=== PATIENT | female | born 1965 | race Caucasian/White ===

== ENCOUNTER → 2020-10-02 16:46 | Outpatient (CLI) | payer BC, SELFPAY ==
--- NOTE | ~2020-10-02 | MM_ITS ---
EXAMINATION: MM screening coleman BI w mike HISTORY: Screening mammogram TECHNIQUE: Craniocaudal and mediolateral oblique 3-D tomosynthesis images were obtained and synthetic 2-D images were generated. CAD analysis was submitted and interpreted. COMPARISON: bilateral digital screening mammogram 10/02/2014 diagnostic left digital mammogram and limited left breast ultrasound 09/21/2014, 03/20/2013 bilateral digital screening mammogram examinations BREAST PARENCHYMAL COMPOSITION: There are scattered areas of fibroglandular density. FINDINGS: There is an asymmetric irregular approximately 2.6 mm opacity in the posterior central left breast on MLO view (MLO Tomosynthesis image 47/74). Diagnostic left mammogram is recommended, with u ltrasound if required. Otherwise there is no evidence of suspicious mass, calcification, or architectural distortion to sugg est malignancy in either breast. There has been no other suspicious interval change. IMPRESSION: 1. 2.6 mm asymmetric irregular opacity in posterior central left breast on screening MLO view 2. Diagnostic left mammogram is recommended, with ultrasound if required BI-RADS Category 0: Incomplete: Needs additional imaging evaluation. Reviewed, dictated and finalized at location A. EGATOR IMPRESSION: 1. 2.6 mm asymmetric irregular opacity in posterior central left breast on scre ening MLO view 2. Diagnostic left mammogram is recommended, with ultrasound if required BI-RADS Category 0: Incomplete: Needs additional imaging evaluation.
== END ==
PROVIDERS: Visit Provider Obstetrics & Gynecology
DX: Z12.31 Encounter for screening mammogram for malignant neoplasm of breast (principal); R92.8 Other abnormal and inconclusive findings on diagnostic imaging of breast
CPT/HCPCS: 77063; 77067

== ENCOUNTER → 2020-10-24 08:41 | Outpatient (CLI) | payer BC, SELFPAY ==
--- NOTE | ~2020-10-24 | MMUS_ITS ---
EXAMINATION: MM diagnostic mammo unilat LT, US breast LT limited HISTORY: Left breast asymmetry on screening mammogram TECHNIQUE: Additional 3-D tomosynthesis images of the left breast were performed and synthetic 2-D im ages were generated. CAD analysis was submitted and interpreted. High resolution limited left breast ultrasound was performed. COMPARISON: 10/02/2020 BREAST PARENCHYMAL COMPOSITION: There are scattered areas of fibroglandular density. FINDINGS: MAMMOGRAPHIC FINDINGS: There is a persistent asymmetry in the far posterior third of the slightly inner breast best apprecia mili 9 cm from the nipple on the mediolateral oblique view. No associated calcification or architectur al distortion are identified. ULTRASOUND: There is no evidence of focal abnormal solid or cystic mass in the vicinity of the mammographic findi ng in question. IMPRESSION: 1. Probably benign left breast asymmetry. 2. Recommend 6 month follow-up left diagnostic mammogram and possible ultrasound. BI-RADS category 3, probably benign findings. Reviewed, dictated and finalized at location A. IMPRESSION: 1. Probably benign left breast asymmetry. 2. Recommend 6 month follow-up left diagnostic mammogram and possible ultrasoun d. BI-RADS category 3, probably benign findings.
== END ==
PROVIDERS: Visit Provider Obstetrics & Gynecology
DX: R92.8 Other abnormal and inconclusive findings on diagnostic imaging of breast (principal)
CPT/HCPCS: 76642; 77065

== ENCOUNTER → 2021-11-19 08:15 | Outpatient (CLI) | payer OTHER, SELFPAY ==
--- NOTE | ~2021-11-19 | MM_ITS ---
EXAMINATION: MM diagnostic coleman BI w mike HISTORY: Follow-up left breast asymmetry TECHNIQUE: Additional 3-D tomosynthesis images of the breasts were performed and synthetic 2-D images were generated. CAD analysis was submitted and interpreted. COMPARISON: Comparison to multiple prior studies sequentially, with oldest reviewed study dated 03/20. BREAST PARENCHYMAL COMPOSITION: Breast composed of scattered areas of fibroglandular density FINDINGS: There are no new masses, calcifications or architectural distortion in either breast to sug gest malignancy. Left breast asymmetry is stable. IMPRESSION: 1. No evidence for malignancy in either breast. 2. Routine yearly screening mammogram and regular clinical breast examination are recommended. BI-RADS Category 1: Negative Reviewed, dictated and finalized at location A. IMPRESSION: 1. No evidence for malignancy in either breast. 2. Routine yearly screening mammogram and regular clinical breast examination a re recommended. BI-RADS Category 1: Negative
== END ==
PROVIDERS: PCP Nurse Practitioner Family; Visit Provider Nurse Practitioner Obstetrics & Gynecology
DX: R92.8 Other abnormal and inconclusive findings on diagnostic imaging of breast (principal)
CPT/HCPCS: 77062; 77066; G0279

== ENCOUNTER 2023-10-05 09:25 | Outpatient (CLI) | payer BC, SELFPAY ==
--- NOTE | ~2023-10-05 | MMUS_ITS ---
EXAMINATION: MM diagnostic coleman BI w mike, US breast LT limited HISTORY: Left 2:00 breast lump TECHNIQUE: Bilateral ML, MLO and CC full field and spot left MLO, MLO and CC 3-D tomosynthesis images were performed and synthetic 2-D images were generated. CAD analysis was submitted and interpreted. High resolution targeted left breast ultrasound was performed. COMPARISON: November 19, 2021 diagnostic bilateral mammogram, reported negative October 24, 2020 diagnostic left mammogram and limited left breast ultrasound 10/02/2020 bilateral screening mammogram BREAST PARENCHYMAL COMPOSITION: There are scattered areas of fibroglandular density. FINDINGS: MAMMOGRAPHIC FINDINGS: No suspicious mass or architectural distortion, malignant calcification, skin thickening or retractio n or significant new or developing density is detected. ULTRASOUND: Targeted ultrasound at 2:00 5 cm from the nipple at the area of clinical complaint of breast lump rev eals no suspicious mass or shadowing, cyst or other significant sonographic abnormality. IMPRESSION: 1. No evidence of malignancy 2. Routine annual mammographic screening is recommended BI-RADS Category 1: Negative Reviewed, dictated and finalized at location A. IMPRESSION: 1. No evidence of malignancy 2. Routine annual mammographic screening is recommended BI-RADS Category 1: Negative
== END 2023-10-05 09:26 ==
PROVIDERS: PCP Nurse Practitioner Obstetrics & Gynecology; Visit Provider Nurse Practitioner Obstetrics & Gynecology
DX: Z12.31 Encounter for screening mammogram for malignant neoplasm of breast (principal); N63.21 Unspecified lump in the left breast, upper outer quadrant
CPT/HCPCS: 76642; 77062; 77066; G0279

== ENCOUNTER 2025-01-25 12:45 | Outpatient (CLI) | payer BC, SELFPAY ==
--- NOTE | ~2025-01-25 | MM_ITS ---
EXAMINATION: MM screening [facility] BI w mike HISTORY: Screening mammogram, family history of breast cancer in her mother. TECHNIQUE: Craniocaudal and mediolateral oblique 3-D tomosynthesis images were obtained and synthetic 2-D images were generated. CAD analysis was submitted and interpreted. COMPARISON: 10/13/2023, 11/19/2021, 10/02/2020 BREAST PARENCHYMAL COMPOSITION:Not Dense. There are scattered areas of fibroglandular density. FINDINGS: No suspicious mass, calcification, or architectural distortion are identified in either rachell ast to suggest malignancy. There has been no suspicious interval change. IMPRESSION: No mammographic evidence of malignancy. Recommend routine screening mammography in one year. BI-RADS Category 1: Negative Reviewed, dictated and finalized at location .
--- OUTSIDE RECORDS SUMMARY | 2025-01-25 12:47 | XMS_ITS | Clinical Summary ---
Author Organization [facility] Address [address] [place] [address] Care Team Providers Care Seat Covers Trimmer Name Role Phone Gordon Diop OD Unavailable [phone] Gregory Sherwood MD Unavailable Leesa Martinez NP Primary Care Provider [phone] Allergies Active Allergy Reactions Criticality Noted Date Comments Penicillins Vomiting Low 06/28/2018 Medications DULoxetine (CYMBALTA) 60 MG capsuleIndicati ons:GALLO (generalized anxiety disorder) TAKE 1 CAPSULE BY MOUTH EVERY DAY 30 capsule 5 09/01/2024 Active traZODone (DESYREL) 50 MG tabletIndicatio ns:Primary insomnia Take 1 tablet (50 mg total) by mouth nightly at bedtime. Take with 150mg daily 90 tablet 1 09/11/2024 03/10/20 25 Active traZODone (DESYREL) 150 MG tabletIndicatio ns:Primary insomnia Take 1 tablet (150 mg total) by mouth nightly at bedtime. 90 tablet 1 09/11/2024 Active rosuvastatin (CRESTOR) 40 MG tabletIndicatio ns:Type 2 diabetes mellitus without complication, without long-term current use of insulin (CMS/HCC HHS/HCC),Dyslip idemia Take 1 tablet (40 mg total) by mouth nightly at bedtime. 90 tablet 3 09/11/2024 Active metFORMIN ER (GLUCOPHAGE-XR) 500 MG 24 hr tabletIndicatio ns:Type 2 diabetes mellitus without complication, without long-term current use of insulin (CMS/HCC HHS/HCC) Take 2 tablets (1,000 mg total) by mouth 2 (two) times a day. 360 tablet 3 09/11/2024 Active rosuvastatin (CRESTOR) 20 MG tablet Take 1 tablet (20 mg total) by mouth nightly at bedtime. Active tirzepatide (MOUNJARO) 12.5 MG/0.5ML injectionIndica tions:Diabetes Mellitus Inject 15 mg into the skin once a week. Indications: Diabetes 3 mL 3 12/21/2024 Active Active Problems Problem Noted Date Diagnosed Date Nodule of finger of right hand 08/31/2024 Overview (08/31/2024): Has a cyst to her distal third finger. She is unssure what it is, Would like it checked out. Assessment & Plan (08/31/2024 9:20 PM HAND LACER): Suspecting it's a mucous cyst from underlying arthritis. Will obtain xray to assess for underlying arthtis. Discussed referral to sports med for treatment since she has had for years and its bothering her. Dyslipidemia 11/23/2022 Overview (08/31/2024): Taking Rosuvastatin and tolerates well. Diet has been poor. Assessment & Plan (08/31/2024 8:59 PM HAND LACER): Chronic condition. Will recheck lipid panel fasting. Resume Rosuvastatin 20 mg nightly BMI 26.0-26.9,adult 02/04/2022 Overview (08/31/2024): Wants to increase her dose of Mounjaor to help with weight loss mainly around her abdomen. Diet has been poor. Going to start exercising. Assessment & Plan (08/31/2024 8:55 PM HAND LACER): Encourage diet and lifestyle changes to assist with weight loss. Pt to limit alcohol consumption. Encourage following a low fat, low carb diet, encorperate whole foods such as fresh fruits and vegetables and whole grains into your diet, encourage 5 small meals per day. Avoid sugar-sweetened beverages, added sugars, processed meats, refined grains and oils or other processed foods. Encourage to get at least 150 minutes of moderate aerobic activity or 75 minutes of vigorous aerobic activity a week, or a combination of moderate and vigorous activity. GALLO (generalized anxiety disorder) 02/04/2022 Overview (08/31/2024): Chronic condition. Takes Duloxetine 60 mg daily. Tolerates well. Denies SI/HI. Assessment & Plan (08/31/2024 9:25 PM HAND LACER): Chronic condition, controlled. No changes needed at this time. Resume Duloxetine 60mg daily. Gastric polyposis 02/11/2021 Overview (02/11/2021): Added automatically from request for surgery [id number] Rectus diastasis 01/22/2021 Overview (01/22/2021): Added automatically from request for surgery [id number] Moderate obstructive sleep apnea 02/22/2018 Overview (08/31/2024): Hx of moderate DEE DEE. Pt tells me that she has not been wearing her CPAP. She states she is not able to keep it on her face at night. Was following with Dr. Che but has not been seen in quite some time Assessment & Plan (08/31/2024 8:42 PM HAND LACER): Encouraged to discuss with pulmonology other options for DEE DEE treatment since patient has moderate obstructive sleep apnea. Discussed with patient concerns with taking a sleep aid with untreated sleep apnea. I highly suggest wearing her CPAP at this current time as long as she can tolerate. Encourage to also work on weight loss to improve sleep apnea.I will place referral back to pulmonology to discuss. The patient should maintain good sleep hygiene techniques, maintain a consistent sleep/wake schedule with adequate hours of sleep, and avoid hazardous activities when sleepy. The patient should be cautioned about factors that may potentially exacerbate snoring and sleep-related problems, such as SERVER SOFTWARE ENGINEER depressants, especially at bedtime. Type 2 diabetes mellitus wit hout complication, without long-term current use of insulin ([facility]) 02/11/2018 Overview (11/28/2024): A1C in Aug. Was 8.0. Is down 1 pound from three months ago. Currently on Metformin 1000mg BID,Mounjaro 12.5 mg weekly. She recently got back from vacation and did eat poorly. Did walk often. Since our last office visit she has been focusing on getting at least 100grams of protein in her diet per day. She struggles with eating too much sweets. Has not been checking her blood sugars recently but heller she does she has been running around 180 fasting. Denies any polyuria, polydipsia, or polyphagia. Denies neuropathy. Diabetic eye exam is up to date. On statin No CHRIS Assessment & Plan (11/28/2024 9:05 AM CDT): A1C today is 7.9 -She is motivated to continue to work on her diet and begin exercising more. She recently bought weights to begin working out at home and walking more. She feels better when she is active so that is her goal. She has three weeks left of Mounjaro 12.5mg and then she would like to increase to 15mg once weekly. She is still consuming enough calories at the high dose. -Focus on diet/lifestyle changes, weight loss. -Goal for blood sugars to be between 80-130 fasting and 180 or less two hours after eating. -Be sure you have a diabetic eye exam yearly. Encourage daily foot checks, avoid walking around barefoot. Goal for A1C to be below 7 Urine Microalbumin- 08/31/24, normal CHRIS/ARB- no Statin-yes Foot exam-11/28/24, normal Assessment & Plan (08/31/2024 9:00 PM HAND LACER): A1C increased to 8.0 -Pt to increase Mounjaor to 12.5mg weekly and to focus on diet/lifestyle changes, weight loss. -Goal for blood sugars to be between 80-130 fasting and 180 or less two hours after eating. -Be sure you have a diabetic eye exam yearly. Encourage daily foot checks, avoid walking around barefoot. Goal for A1C to be below 7 Urine Microalbumin- 08/03/23,completed today CHRIS/ARB- no Statin-yes Foot exam- next visit, denies neuropathy Assessment & Plan (03/03/2024 11:34 AM CDT): A1C did not improve. -Pt wants to avoid any med changes at this time and work on exercise/dietary changes over the next six months. -Goal for blood sugars to be between 80-130 fasting and 180 or less two hours after eating. -Be sure you have a diabetic eye exam yearly. Encourage daily foot checks, avoid walking around barefoot. Goal for A1C to be below 7 Urine Microalbumin- 08/03/23, normal CHRIS/ARB- no LDL- 36 Statin-yes Foot exam- 06/16/23 Vitamin D deficiency 02/11/2018 Acid reflux 01/19/2018 Insomnia 01/19/2018 Overview (08/31/2024): Takes 150mg of Trazodone nightly.. Still does not help her fall and stay asleep all night. Is only getting about 4 hours of sleep per night. Assessment & Plan (08/31/2024 9:24 PM HAND LACER): Chronic condition not controlle.d Will increase trazodone to 250 mg nightly however patient must be compliant with use of CPAP and avoid alcohol prior to bedtime. W soould not recommend any further sedative medications because of her history of sleep apnea. Encourage good sleep hygiene. Multiple allergies 01/19/2018 Resolved Problems Problem Noted Date Diagnosed Date Resolved Date Non-compliance 05/10/2022 06/16/2023 Mixed hyperlipidemia 02/04/2022 025 Screening for colon cancer 01/22/2021 0 08/31/2024 Overview (01/22/2021): Added automatically from request for surgery [id number] Anxiety 01/19/2018 08/26/2022 Wears contact lenses 01/19/2018 020 Wears glasses 01/19/2018 04/05/2020 Encounters Date Type Department Care Team Description 12/20/2024 Telephone [facility] Family [facility] - [place] [address] [place], [place] [id number] Leesa Martinez NP Refill Request 11/28/2024 8:20 AM CDT Office Visit [address] [place] [address] Leesa Martinez NP Diabetes (Patient presents for a 3 month follow up on diabetes) 11/28/2024 Telephone [place] [id number] [facility] [address] [place] [address] Leesa Martinez NP Record Request 11/28/2024 Travel from Last 3 Months Immunizations Immunization Administration Dates Next Due Fluzone 6 Months+ Quad (0.5 mL Prefilled Syringe) 05/20/2020,06/28/2018 Influenza Adult (Generic) 05/22/2022,05/06/2022, 05/04/2021 PFIZER COVID-19 (ORIGINAL FO RMULATION, PURPLE CAP) mRNA, LNP-S, PF, 30 MCG/0.3 ML DOSE 11/14/2020,10/24/2020 Pneumococcal (Prevnar 20) 05/07/2022 Family History Medical History Relation Comments Diabetes Father Heart Disease Father Parkinson's Disease Father kidney failure Father Arthritis Mother Breast Cancer Mother Cancer Mother breast Arthritis Sister 1 Arthritis Sister 2 Relation Status Comments Father Mother Sister 1 Sister 2 Alive Social History Tobacco Use Types Packs/Day Years Used Date Smoking Tobacco: Never Passive Smoke Exposure: Never Smokeless Tobacco: Never Tobacco Cessation:Counseling Given: No Alcohol Use Standard Drinks/Week Comments Not Currently 0 (1 standard drink = 0.6 oz pur e alcohol) rare use AUDIT-C Answer Date Recorded Frequency of Alcohol Consumption 2-4 times a wed06/28/2018 Average Number of Drinks Not on file 018 Frequency of Binge Drinking Not on file 10/2017 PHQ-2 Answer Date Recorded Patient Health Questionnaire-2 Score 0 08/31/2024 Education Answer Date Recorded What is the highest level of school you have completed or the highest degree you have received? Bachelor's degree (e.g., BA, AB, BS) 02/20/2019 Comments No Sex and Gender Information Value Date Recorded Sex Assigned at Female 10/03/2018 4:01 PM CDT Legal Sex Female 7:41 PM CDT Gender Identity Female 10/03/2018 4:01 PM CDT Sexual Orientation Straight 02/20/2019 2: 08 PM CDT Last Filed Vital Signs Vital Sign Reading Time Taken Comments Blood Pressure 112/70 11/28/2024 8:37 AM CDT Pulse 93 11/28/2024 8:37 AM CDT Temperature 36.8 C (98.2 F) 11/28/2024 8:37 AM CDT Respiratory Rate 16 11/28/2024 8:37 AM CDT Oxygen Saturation 98% 11/28/2024 8:37 AM CDT Inhaled Oxygen Concentration - - Weight 76.2 kg (168 lb) 11/28/2024 8:37 AM CDT Height 167.6 cm (5' 6) 11/28/2024 8:37 AM CDT Body Mass Index 27.12 11/28/2024 8:37 AM CDT Plan of Treatment Upcoming Encounters Date Type Department Care Team (Late st Contact Info) Description 03/01/2025 8:40 AM CDT Office Visit [facility] - [place] [address] [facility] [address] [place] [address] Leesa Martinez NP [address] [place] [address] 04/11/2025 9:20 AM CDT Office Visit [facility] - [address] [place] [address] Nathan Foley MD [address] [place] [id number] Health Maintenance Due Date Last Done Comments Cervical Cancer Screening Pap Smear (Age 30 to 64) Every 3 Years 1966 DTaP, Tdap and Td Vaccines (1 - Tdap) 1985 Hepatitis B Vaccines (1 of 3 - 19+ 3-dose series) 1985 Zoster Vaccines (1 of 2) 2016 Mammogram Screening 11/19/2022 11/19/2021, COVID-19 Vaccine ( season) 2024 11/14/2020, 10/24/2020 Hemoglobin A1C 02/26/2025 11/28/2024, 12/2024, 03/03/2024, Additional history exists Lipid Panel 02/28/2025 08/31/2024, 03/2024, 11/23/2022, Additional history exists Cervical Cancer Screening Pap with HPV Testing (Age 30 to 64) Every 5 Years 06/07/2025 06/07/2020 Cervical Cancer Screening with HPV 06/07/2025 Annual Physical 08/31/2025 08/31/2024, 05/27, 05/07/2022, Additional history exists Kidney Health Evaluation 08/31/2025 08/31/2024 Diabetes: Retinopathy Eye Exam 10/19/2026 10/19/2024, 01/25/2024, 09/10/2022 Colorectal Cancer Screening Colonoscopy (10 Years) 01/31/2031 01/31/2021 Pneumococcal Vaccine: 50+ Years Completed 05/07/2022 Hepatitis C Completed 08/03/2023 PHQ-2 (Physician Sheridan) Completed 08/31/2024 Meningococcal B Vaccine Aged Out No l onger eligible based on patient's age to complete this topic Meningococcal Vaccine Aged Out No car nikki eligible based on patient's age to complete this topic RSV Immunizations Under 20 Months Aged Out No longer eligible based on patient's age to complete this topic Procedures Procedure Name Priority Date/Time Associated Diagnosis Comments COLLECT.CAPILLARY (FNGR,HEEL,EAR) Routine 11/28/2024 8:37 AM CDT Type 2 diabetes mellitus without complication, without long-term current use of insulin ([facility]) HEMOGLOBIN, GLYCOSYLATED Routine 11/28/2024 Type 2 diabetes mellitus without complication, without long-term current use of insulin ([facility] HHS/[facility]) DIABETIC RETINOPATHY EXAM (NEGATIVE)(SCAN ORDER) Routine 10/19/2024 LIPID PANEL Routine 08/31/2024 1:08 PM HAND LACER Mixed hyperlipidemia HEPATITIS C ANTIBODY Routine 08/03/2023 8:55 AM HAND LACER Need for hepatitis C screening test MAMMOGRAM GENERIC (SCAN ORDER) 11/19/2021 OUTSIDE CYTOPATH CERV/VAG INTERPRET (PAP) 06/07/2020 from Last 3 Months or Most Recently Relevant to Health Maintenance Results * A1C (BACK OFFICE) (11/28/2024) HGB A1C 7.9 % [address] [place] 11/28/2024 Leesa Martinez [facility] Final Res ult [address] [place] [address] [place] [address], [place] [phone] * DIABETIC RETINOPATHY EXAM (NEGATIVE) (10/19/2024) [facility] Scanned SCANNING Final Resu lt [facility] ONBASE * (ABNORMAL) LIPID PANEL (08/31/2024 1:08 PM HAND LACER) CHOLESTEROL 210(H) <200 MG/DL 08/31/2024 8:03 PM HAND LACER [facility] TRIGLYCERIDES 173(H) <150 MG/DL 08/31/2024 8:03 PM HAND LACER [facility] HDL 51 >40 MG/DL 08/31/2024 8:03 PM HAND LACER [facility] LDL-C 124(H) <100 MG/DL 08/31/2024 8:03 PM HAND LACER [facility] VLDL CALCULATION 35(H) 5 - 28 MG/DL 08/31/2024 8:03 PM HAND LACER [facility] CHOL/HDL RATIO 4.1(H) 0.0 - 4.0 08/31/2024 8:03 PM HAND LACER [facility] LDL/HDL 2.4(H) 0.41 - 2.13 08/31/2024 8:03 PM HAND LACER [facility] NON HDL CHOLESTEROL 159(H) <140 MG/DL 08/31/2024 8:03 PM HAND LACER [facility] 08/31/2024 1:08 PM HAND LACER Leesabob Martinez [facility] Final Res ult [facility] [address] [place] [address], [place] [phone] * HEPATITIS C ANTIBODY ([facility] ONLY) (08/03/2023 8:55 AM HAND LACER) HEPATITIS C AB NON-REACTI VE NON-REACT REEMA 08/03/2023 9:42 PM HAND LACER [facility] Comment: ANTIBODIES TO HCV NOT DETECTED. DOES NOT EXCLUDE THE POSSIBILITY OF EXPOSURE TO HCV. 08/03/2023 8:55 AM HAND LACER Leesa Martinez [facility] Final Res ult [facility] [address] [place] [address], [place] [phone] [id number] * MAMMOGRAM GENERIC (11/19/2021) Anatomical Region Laterality Modality Other 11/19/2021 Narrative 11/19/2021 Ordered by an unspecified provider. us Documents Scanned SCANNING Final Result * OUTSIDE CYTOPATH VAG/CERV PAP WITH HPV (06/07/2020) 06/07/2020 Narrative 06/07/2020 Ordered by an unspecified provider. us Documents Scanned SCANNING Final Result from Last 3 Months or Most Recently Relevant to Health Maintenance Insurance [facility] Care Teams Seat Covers Trimmer Relationship Specialty Start Date End Date Leesa Martinez NP [address] [place] [address] PCP - General NURSE PRACTITIONER 06/16/23 Gordon Diop OD [address] [place] [id number] Consulting Physician OPTOMETRY 07/21/21 Gregory Sherwood MD [address] [address] Consulting Physician GASTROENTEROLOGY 07/21/21
--- OUTSIDE RECORDS SUMMARY | 2025-01-25 12:47 | XMS_ITS | Encounter Summary ---
Author Organization [facility] Address [address] [place] [address] Care Team Providers Care Liquor Bridge Operator Helper Name Role Phone Meenakshi Cool [facility] Primary Care Provider + Gordon Diop OD Unavailable +1- [phone] Gregory Sherwood MD Unavailable Leesa Martinez NP Primary Care Provider +1 -[phone] Encounter Details Date Type Department Care Team (Late st Contact Info) Description 01/23/2022 [facility] Patient Accounts [address] [place] [address] [facility] Social History Tobacco Use Types Packs/Day Years Used Date Smoking Tobacco: Never Smokeless Tobacco: Never Alcohol Use Standard Drinks/Week Comments Yes 0 (1 standard drink = 0.6 oz pur e alcohol) rare use AUDIT-C Answer Date Recorded Frequency of Alcohol Consumption 2-4 times a wed06/28/2018 Average Number of Drinks Not on file 018 Frequency of Binge Drinking Not on file 10/2017 PHQ-2 Answer Date Recorded PHQ-2 Score - If the patient scores above 3, please move on to questions 3-9 0 10/27/2021 Education Answer Date Recorded What is the [...] Orientation Straight 02/20/2019 2: 08 PM CDT documented as of this encounter Plan of Treatment Upcoming Encounters Date Type Department Care Team (Late st Contact Info) Description 03/01/2025 8:40 AM CDT Office Visit [facility] Medical [facility] Family Medicine - [place] [address] [place] [address] Leesa Martinez NP [address] [place] [address] 04/11/2025 9:20 AM CDT Office Visit [facility] Medical [facility] [place] [address] [place] [address] Nathan Foley MD [address] [id number] documented as of this encounter Visit Diagnoses Not on filedocumented in this encounter Additional Health Concerns Assessment Noted Time PHQ-9 Depression Total Score: 0 10/28/19 22 8:20 AM CDT documented as of this encounter Care Teams Liquor Bridge Operator Helper Relationship Specialty Start Date End Date Meenakshi Cool FNP-BC PCP - General Nurse Practitioner Family 07/21/21 Leesa Martinez NP [address] [place] [address] PCP - General NURSE PRACTITIONER 06/16/23 Gordon Diop OD [address] [place] [id number] Consulting Physician OPTOMETRY 07/21/21 Gregory Sherwood MD [address] [address] Consulting Physician GASTROENTEROLOGY 07/21/21 documented as of this encounter
--- OUTSIDE RECORDS SUMMARY | 2025-01-25 12:47 | XMS_ITS | Data Portability ---
Author Organization [facility], [id number] Address [address] [place] [address] Assessment No assessment recorded. Plan of Treatment Reminders Order Date Submit Date Provider Last Modified By Organization Details Last Modified Time Details Appointments ANNUAL- EST 15 2025 08:00A M LUCRETIA GALAN WHNP Not available Not available Not available Lab None recorde d. Referral None recorde d. Procedures None recorde d. Surgeries None recorde d. Imaging MAMMO, screeni ng, digital , bilater al [facility] [address], [place] [address], [place], [address], 10/04/2024 14:53:33 Medication Orders None recorde d. Patient TargetsNo targets recorded. Patient InstructionsNo instructions recorded. Reason for Referral None Reported. Problems Name Problem SNOMED Code Status Onset Date Resolution Date Notes Provider Name and Address Organization Details Recorded Time Abnormal cervical Papanicola ou smear 263267374 Active Mile Corrigan [facility], [facility] 17:42:55 Acid reflux 872282110 Active 2024 Mile Corrigan null, [facility] [place] 17:43:05 Anxiety 69395901 Active 2024 Mile Corrigan null, [facility] 17:43:12 Hyperchole sterolemia 55977245 Active 2024 Mile Corrigan null, [facility] for [facility] 17:43:24 Type 2 diabetes mellitus 02954785 Active 2024 Mile david, [facility] 5 17:43:32 Overweight 340331170 Active 2024 LUCRETIA Salinas [facility] [address], [place], [address] , [facility] for [facility] 5 09:15:19 Anxiety state 861374829 Active Anxiety Disorder, Generaliz ed, - [employer] 9 Problem Code: 300.00; Problem Code Type: ICD-9; Not Available [facility] 12:54:17 Gastroesop hageal reflux disease 716162437 Active Acid Reflux/GE RD, Problem Code: 530.81; Problem Code Type: ICD-9; Not Available [facility] 12:54:17 Pure hyperchole sterolemia 746598680 Active High cholester ol, Problem Code: 272.0; Problem Code Type: ICD-9; Not Available [facility] 12:54:17 Type 2 diabetes mellitus without complicati on 411547103 Active Type 2 diabetes mellitus, Problem Code: 250.00; Problem Code Type: ICD-9; Not Available [facility] 12:54:17 History of abnormal cervical Papanicola ou smear 368128406 Active Abnormal Pap Smear, hx leep and colpo Startdate : '1997'; Problem Code Descripti on: 'Abnormal Pap Smear'; Not Available [facility] 12:54:17 Problem Notes None recorded. Procedures Surgical History Date Name Laterality Status Provider Name and Address Organization Details Recorded Time 10/05/19 24 Date of Last Mammogram completed Mile Corrigan [facility] 09/19/2024 17:49:55 09/08/19 24 Date of Last Pap Smear completed Mile Corrigan [facility] 09/19/2024 17:45:31 02/24/20 21 Date of Last Colonoscopy completed Mile Corrigan [facility] 09/19/2024 17:46:01 01/09/20 21 removal of intrauterine contraceptive device completed Mile Corrigan [place] [facility] 09/19/2024 17:50:43 07/26/19 16 insertion of intrauterine contraceptive device completed Mile Corrigan [place] - [facility] 09/19/2024 17:51:00 11/08/19 05 Tonsillectomy completed Mile Corrigan [place] - [facility] 09/19/2024 17:51:15 12/03/18 98 loop electrosurgical excision procedure completed Mile Corrigan [facility] 09/19/2024 17:49:29 11/20/18 98 Colposcopy completed Mile Corrigan [facility] 09/19/2024 17:49:06 Colonoscopy completed Mile Corrigan [facility] 09/20/2024 08:51:10 Conization of cervix completed Not Available [facility] 11/23/2024 16:14:54 tonsillectomy completed Not Available [facility] 11/23/2024 16:14:54 introduction of Mirena coil completed Not Available [facility] 11/23/2024 16:14:54 colposcopy completed Not Available [facility] 11/23/2024 16:14:54 removal of Mirena coil completed Not Available [facility] 11/23/2024 16:14:54 Imaging Results None recorded. Procedure Notes None recorded. Medical Equipment None Reported. Allergies Allergen ID Allergen Name Allergen Category Reaction Reaction Severity Criticality Documentation Date Start Date Code Code System Note Provider Name and Address Organization Details Recorded Time 527816 Product containin g penicilli n (product) medicatio n rash Not available Not available 09/19/2024 06691 8001 SNOMED Mile Corrigan [facility], [place] - [facility] 17:42:02 Medications Name Sig Start Date Stop Date Status Note LastModified by Organization Details LastModified Time trazodone 50 mg tablet 09/20 completed Not Available Not Available Not Available trazodone 150 mg tablet TAKE 1 TABLET BY MOUTH NIGHTLY AT BEDTIME. active Not Available Not Available No t Available metformin ER 500 mg tablet,exte nded release 24 hr TAKE 2 TABLETS (1,000 MG TOTAL) BY MOUTH TWICE A DAY BEFORE MEALS active Not Available Not Available No t Available rosuvastati n 20 mg tablet TAKE 1 TABLET BY MOUTH NIGHTLY AT BEDTIME active Not Available Not Available No t Available rosuvastati n 40 mg tablet active Not Available Not Available Not Available duloxetine 60 mg capsule,del ayed release TAKE 1 CAPSULE BY MOUTH EVERY DAY active Not Available Not Available No t Available Ozempic 2 mg/dose (8 mg/3 mL) subcutaneou s pen injector INJECT 2 MG UNDER THE SKIN ONCE WEEKLY 09/20 completed Not Available Not Available Not Available Mounjaro 10 mg/0.5 mL subcutaneou s pen injector INJECT 10 MG INTO THE SKIN ONCE A WEEK. INDICATIO NS: DIABETES 09/20 completed Not Available Not Available Not Available Mounjaro 12.5 mg/0.5 mL subcutaneou s pen injector INJECT 12.5 MG INTO THE SKIN ONCE A WEEK. INDICATIO NS: DIABETES active Not Available Not Available No t Available Vitals Date Recorded Body height Body mass index (BMI) Body weight Systolic And Diastolic Provider Name and Address Organization Details Last Updated DateTime 09/20/2024 160.02 cm 29.9 kg/m2 44996.11 g 116/72 mm[Hg] Mile Corrigan [facility] 09/20/2024 08:50:51 Social History Question Answer Notes LastModified by Organizat ion Details LastModified Time Tobacco Smoking Status Never Smoker Mile Corrigan [facility] 09/20/2024 08:51:07 Do You Have An Advance Directive? No [email or web address] Information not available 09/20/2024 If You Are , What Was Your Level Of Alcohol Consumption Prior To ? None [email or web address] Information not available 09/20/2024 How Many Years Have You Consumed Alcohol? 40 [email or web address] Information not available 09/20/2024 What Is Your Level Of Caffeine Consumption? Occasional [email or web address] Information not available 09/20/2024 What Type Of Diet Are You Following? DIABETIC [email or web address] Information not available 09/20/2024 What Is Your Relationship Status? [email or web address] Information not available 09/20/2024 Sex: Unknown Functional Status Question Answer Note LastModified by Organizat ion Details LastModified Time How many times per week do you consume alcohol? 1-2 times per week [email or web address] Information not available 09/20/2024 Do you use any illicit or recreational drugs? No Information not available 09/20/2024 What is your level of alcohol consumption? Occasional [email or web address] Information not available 09/20/2024 Are you currently employed? 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 Family History Relationship Description Onset Age of this Age Resolved Age Notes LastModified by Organization Details LastModified Time Father Diabetes mellitus [email or web address] Not available 2024 08:45:45 Father Heart disease [email or web address] Not available 2024 17:46:50 Father Parkinson's disease [email or web address] Not available 2024 08:45:45 Mother Degenerative disorder of macula [email or web address] Not available 2024 08:45:45 Mother Family history of breast cancer [email or web address] Not available 2024 08:45:45 Maternal Aunt Family history of breast cancer [email or web address] Not available 2024 08:45:45 Paternal Grandmother Leukemia [email or web address] Not available 09/20 08:45:45 Paternal Grandfather Family history of malignant neoplasm of pancreas [email or web address] Not available 2024 08:45:45 Mother History taken NOS Other mom - macula r degene ration Not available 11/23/2024 18:13:29 Mother Malignant neoplastic disease Cancer mom - breast , all over M aunt-b reast PGM- leukem ia PGF- pancre atic Not available 11/23/2024 18:13:29 Paternal Grandmother Malignant neoplastic disease Cancer mom - breast , all over M aunt-b reast PGM- leukem ia PGF- pancre atic Not available 11/23/2024 18:13:29 Unspecified Relation Malignant neoplastic disease Cancer mom - breast , all over M aunt-b reast PGM- leukem ia PGF- pancre atic Relati ve: 'Aunt' ; Not available 11/23/2024 18:13:29 Medical History Condition Response Psych- Anxiety Disorder Y GI- Reflux/Ulcers Y Cancer- Genetic screening Pulmonary- Sleep Apnea Y Cardiology- High Cholesterol Y Endocrinology- Diabetes Y Gynecological History Statement/Question Response Date of Last Mammogram 10/05/2023 History of Fibroids N Current Control Method: Menopause History of Recurrent Ovarian Cysts N Age at first intercourse 17 HPV Vaccine Not Completed Date of Last Colonoscopy 02/23/2021 Date of Last Diabetes Screening 08/31/19 26 Date of Last HPV Test 09/08/2023 Date of Last Cholesterol Screening 08/31 History of PCOS N History of Infertility N History of Cervical Dysplasia N History of Vulvar Dysplasia N History of HPV Y Current Control Method None Age at Menarche 14 History of Endometriosis N Sexually Active? Y History of Abnormal PAP Y History of Dysmenorrhea N Menses Monthly N Date of Last Pap Smear 09/08/2023 Sexual Problems? 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 Overweight 612808709 E66 .3 Depression screening 171 020442 Z13.31 -score 1 Health Concerns Section Related Observation LastModified by Organization Detai ls LastModified Time None Recorded Concern Status LastModified by Organization Details LastModified Time None Recorded Advance Directives Directive N: Payers Insurance Date Sequence Insurance Name Policy Number Policy Hardin Covered Member ID Hardin Member ID Guarantor Name 09/20/2024 1 [facility] [id number] Vy Kong [id number] Vy Kong Notes Date Note Type Note Provider Name and Address Organization Details Recorded Time 09/20/2024 text/html [facility] Annual Well-Women Visit Age 40-64Reported bypatient.Current Medical History:reviewed and documented Relevant Family History:has a family history of breast cancer(mother hx of breast ca) Last Pap smear:last Pap smear was normal; last HPV negative Mammography:due Colorectal screening:up-to-d ate Diabetes screening:up-to-d ate Lipid screening:up-to-d ate Contraceptive Method:N/A Sexually Active:Yes: same partner STI Screen:declines STI testing LUCRETIA BETANCOURT [address], [place], [address], [facility] 09/20/2024 09:15:56 OBGyn Episode No OBEpisode recorded.
--- OUTSIDE RECORDS SUMMARY | 2025-01-25 12:48 | XMS_ITS | Clinical Summary ---
Author Organization [facility] Address [address] [place] [address] Care Team Providers Care Quality Review Specialist Name Role Phone Leonor Fatima Primary Care Provider [phone]- [phone] Source Comments [facility],non-owned Affiliates and Associated Physician Practices is amultiple site organization consisting of ambulatory clinics and hospital sitesin [place], [place], [place] and [place]. This disclosure is being madepursuant to the Care Everywhere program and may not contain all information available regarding this patient. Last updated 18.[facility] Allergies Active Allergy Reactions Criticality Noted Date Comments Penicillins Rash Medium 12/27/2017 Medications * Be aware that medications may not be up to date on this document. Alwaysverify current medications with the patient. DULoxetine HCl (CYMBALTA PO) Active Esomeprazole Magnesium (NEXIUM PO) Active Cetirizine HCl (ZYRTEC PO) Active fluticasone propionate (FLONASE) 50 MCG/ACT nasal spray [place] 2 sprays into each nostril once daily 1 bottles 8 Active Additional Information Patient not taking.Reported on 10/18/2023 traZODone (Desyrel) 100 MG tablet Take 1.5 (one and one-half) tablets by mouth at bedtime Active lansoprazole (Prevacid) 15 MG capsule Take 1 (one) capsule by mouth daily before breakfast Active Ozempic, 2 MG/DOSE, 8 MG/3ML pen every 7 days 4 Active metFORMIN (Glucophage) 1000 MG tablet Take 1 (one) tablet by mouth daily with breakfast Active Active Problems No known active problems Social History Tobacco Use Types Packs/Day Years Used Date Smoking Tobacco: Never Smokeless Tobacco: Never Tobacco Cessation:Counseling Given: Not Answered Comments Unknown Sex and Gender Information Value Date Recorded Sex Assigned at Not on file 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 Gender Identity Not on file Sexual Orientation Not on file Last Filed Vital Signs Vital Sign Reading Time Taken Comments Blood Pressure 138/80 12/27/2017 10:14 AM CDT Pulse 70 12/27/2017 10:14 AM CDT Temperature 36.7 C (98.1 F) 12/27/2017 10:14 AM CDT Respiratory Rate 16 12/27/2017 10:14 AM CDT Oxygen Saturation 97% 12/27/2017 10:14 AM CDT Inhaled Oxygen Concentration - - Weight 90.7 kg (200 lb) 12/27/2017 10:14 AM CDT Height 167.6 cm (5' 6) 12/27/2017 10:14 AM CDT Body Mass Index 32.28 12/27/2017 10:14 AM CDT Plan of Treatment Health Maintenance Due Date Last Done Comments COLOGUARD (AGES 45-75) - COL ON CA SCREENING 1966 COLON MONITORING 1966 COLONOSCOPY - COLON CA SCREENING 1966 CT COLONOGRAPHY - COLON CA SCREENING 1966 Colorectal Cancer Screening 1966 FIT - COLON CA SCREENING 1966 FLEX SIG - COLON CA SCREENING 1966 HIV SCREENING 1981 DTAP/TDAP/TD VACCINES (1 - Tdap) 1985 HEPATITIS B VACCINE (1 of 3 - 19+ 3-dose series) 1985 PAP SMEAR 1987 PNEUMOCOCCAL VACCINE 50+ (1 of 1 - PCV) 2016 ZOSTER VACCINE (1 of 2) 2016 MAMMOGRAM 11/20/2023 11/19/2021, 02/10/2011 COVID-19 VACCINE ( - 2023-2 5 season) 2024 11/14/2020, 10/24/2020 DEPRESSION SCREENING 07/26/2024 INFLUENZA VACCINE (Season Ended) 2025 LIPID TESTING 08/03/2028 08/03/2023 HEPATITIS C SCREENING Completed 08/03/2023 HIB VACCINE Aged Out No longer eligi ble based on patient's age to complete this topic HPV VACCINE Aged Out No longer eligi ble based on patient's age to complete this topic MENINGOCOCCAL (Group B) VACCINE SHARED DECISION-MAKING Aged Out No longer eligible based on patient's age to complete this topic MENINGOCOCCAL GROUPS A/C/Y/W VACCINE Aged Out No longer eligible b ased on patient's age to complete this topic Procedures Procedure Name Priority Date/Time Associated Diagnosis Comments MAMMO BILAT SCREENING Routine 02/10/2011 1:45 PM CDT Other screening mammogram from Last 3 Months or Most Recently Relevant to Health Maintenance Results * MAMMO SCREENING DIGITAL IMAGE BILAT (02/10/2011 1:45 PM CDT) Anatomical Region Laterality Modality Breast Bilateral Mammography 02/16/2011 2:44 PM CDT Addenda This result is currently undergoing an addendum. Addendum by Mile Abraham MD on 02/17/2011 4:24 PM CDT The patient's prior films have become available dated 02/09/2009 from [facility]. There is no discrete abnormality. There is no significant interval change. ASSESSMENT: BIRADS category 2, benign findings. RECOMMENDATION: Followup in one year. Narrative 02/16/2011 4:53 PM CDT DIGITAL BILATERAL SCREENING MAMMOGRAMS WITH CAD CORRELATION INDICATION: Screening. TECHNIQUE: CC and MLO digital mammogram images were performed of both breasts. The images were reviewed with the aid of the [employer] CAD (Version 8.3) system. TECHNOLOGIST: RT Munir (R)(M) TISSUE DENSITY: Average FINDINGS: No discrete mass can be identified on both CC and MLO views of the breasts. The patient states that she had a previous mammogram in 2007 or 2008 at [facility] in [place], [place], but we do not have the previous films available at the current time. ASSESSMENT: BI-RADS 0, incomplete, outside film comparison pending. RECOMMENDATIONS: Comparison with prior outside films is recommended. The above findings should be correlated with physical examination. A relatively nonspecific study should not preclude additional evaluation if suspicious findings are present clinically. An [employer] Certified Facility Procedure Note Reyes Phan MD / Mile Abraham MD - 02/16/2011 DIGITAL BILATERAL SCREENING MAMMOGRAMS WITH CAD CORRELATION INDICATION: Screening. TECHNIQUE: CC and MLO digital mammogram images were performed of both breasts. The images were reviewed with the aid of the [employer] CAD (Version 8.3) system. TECHNOLOGIST: RT Munir (R)(M) TISSUE DENSITY: Average FINDINGS: No discrete mass can be identified on both CC and MLO views of the breasts. The patient states that she had a previous mammogram in 2007 or 2008 at [facility] in [place], [place], but we do not have the previous films available at the current time. ASSESSMENT: BI-RADS 0, incomplete, outside film comparison pending. RECOMMENDATIONS: Comparison with prior outside films is recommended. The above findings should be correlated with physical examination. A relatively nonspecific study should not preclude additional evaluation if suspicious findings are present clinically. An [employer] Certified Facility Soniya Salazar MD MAMMO ORDERABLES Edited from Last 3 Months or Most Recently Relevant to Health Maintenance [facility] Care Teams Quality Review Specialist Relationship Specialty Start Date End Date Leonor Fatima DO [address] [place] [id number] PCP - General 02/09/11
--- OUTSIDE RECORDS SUMMARY | 2025-01-25 12:48 | XMS_ITS | Referral Summary ---
Author Organization [facility] Address [address] [place] [address] Care Team Providers Care Impact Retail Service Merchandiser Name Role Phone Ev Cao NP Primary Care Provider [phone] Allergies Active Allergy Reactions Criticality Noted Date Comments Penicillins Rash Medium 12/27/2017 Medications clobetasol (TEMOVATE) 0.05 % cream APPLY BY TOPICAL ROUTE EVERY DAY A THIN LAYER TO THE AFFECTED AREA 0 8 Active VITAMIN D2 50,000 unit capsule 8 Active fluconazole (DIFLUCAN) 150 mg tablet TK 1 T PO QD 0 8 Active fluticasone (FLONASE) 50 mcg/actuation nasal spray Administer 2 sprays into each nostril. 8 Active metFORMIN (GLUCOPHAGE) 500 mg tablet 8 Active zolpidem (AMBIEN) 10 mg tabletIndicatio ns:Sleep-Onset Insomnia 0 8 Active blood glucose diagnostic (glucose blood) strip 1 strip by other route as needed 1 Active glyBURIDE (DIABETA) 2.5 mg tablet Take 2.5 mg by mouth 2 times daily 1 Active lansoprazole (PREVACID) 15 mg capsule Take 15 mg by mouth daily Active liraglutide (Victoza 2-Dallin) 0.6 mg/0.1 mL (18 mg/3 mL) injection Inject 1.2 mg under the skin daily 1 Active pen needle, diabetic (Pen Needle) 31 gauge x 3/16 needle 1 each by Not Applicable route daily 1 Active Suprep Bowel Prep Kit 17.5-3.13-1.6 gram recon soln as directed 1 Active DULoxetine (CYMBALTA) 60 mg capsule 1 Active Active Problems No known active problems Immunizations Immunization Administration Dates Next Due Sars-CoV-2, Unspecified 12/02/2020,10/28/2020 Social History Tobacco Use Types Packs/Day Years Used Date Smoking Tobacco: Never Assessed Alcohol Use Standard Drinks/Week Comments Yes 0 (1 standard drink = 0.6 oz pur e alcohol) Comments Unknown Sex and Gender Information Value Date Recorded Sex Assigned at Not on file 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 Gender Identity Female 04/01/2021 8:48 AM CDT Sexual Orientation Not on file Last Filed Vital Signs Vital Sign Reading Time Taken Comments Blood Pressure 134/93 04/01/2021 9:04 AM CDT Pulse 91 04/01/2021 9:04 AM CDT Temperature - - Respiratory Rate - - Oxygen Saturation - - Inhaled Oxygen Concentration - - Weight 87.5 kg (193 lb) 04/01/2021 9:04 AM CDT Height 165.1 cm (5' 5) 04/01/2021 9:04 AM CDT Body Mass Index 32.12 04/01/2021 9:04 AM CDT Plan of Treatment Not on file Insurance [facility] CHO[facility] PL[facility] Care Teams Impact Retail Service Merchandiser Relationship Specialty [place] [id number] [address] [facility] [address] [place] [address] PCP - General Family Practice 05/10/18
--- OUTSIDE RECORDS SUMMARY | 2025-01-25 12:48 | XMS_ITS | Clinical Summary ---
Author Organization [facility] [employer] [facility] Address [address] [place] [address] Care Team Providers Care Burial Vault Setter Name Role Phone Ev Cao NP Primary Care Provider [phone]- [phone] Allergies Active Allergy Reactions Criticality Noted Date [...] Administration Dates Next Due Sars-CoV-2, Unspecified 12/02/2020,10/28/2020 Surgical History Surgery Date Site/Laterality Comments TONSILLECTOMY Tonsillectomy Medical History Medical History Date Comments Gastroesophageal reflux disease GERD Anxiety disorder Anxiety Family History Medical History Relation Name Comments Breast cancer Other 2 Family history of Cancer, breast; Relation Name Status Comments Other 1 Alive Other 2 Social History Tobacco Use Types Packs/Day Years Used Date Smoking Tobacco: Never Assessed Alcohol Use Standard Drinks/Week Comments Yes 0 (1 standard drink = 0.6 oz pur e alcohol) Comments Unknown Sex and Gender Information Value Date Recorded Sex Assigned at Not on file 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 Gender Identity Female 04/01/2021 8:48 AM CDT Sexual Orientation Not on file Obstetrics History Last Filed Vital Signs Vital Sign Reading [...] 04/01/2021 9:04 AM CDT Plan of Treatment Health Maintenance Due Date Last Done Comments Breast Cancer Screening-Mammogram 1966 Cervical Cancer Screening 1966 Colon Cancer Screening-Colonoscopy 1966 Depression Screening 1966 Hepatitis C Screening 1966 DTaP/Tdap/Td Vaccine (1 - Tdap) 1977 Hepatitis B Screening 1984 Regular Well Visit/Exam 18-64 1984 Zoster Vaccine (1 of 2) 2016 Covid-19 Vaccine ( season) 2024 12/02/2020, 11/14/2020, 10/28/2020, Additional history exists Influenza Vaccine (Season Ended) 2025 05/20/2020, 06/28/2018 Pneumococcal vaccine <65 Aged Out No longer eligible based on patient's age to complete this topic Insurance [facility] Address: [place] [address] Care Teams Burial Vault Setter Relationship Specialty [place] [id number] [address] [facility] [address] [place] [address] PCP - General Family Practice 05/10/18
== END 2025-01-25 12:46 | disposition home or self-care (01) ==
LOC: CHSIMG 12:46
PROVIDERS: PCP Nurse Practitioner Obstetrics & Gynecology; Visit Provider Nurse Practitioner
DX: Z12.31 Encounter for screening mammogram for malignant neoplasm of breast (principal)
CPT/HCPCS: 77063; 77067